=== PATIENT | male | born 1990 | race Caucasian/White ===

== ENCOUNTER 2018-07-18 09:49 | Emergency (ER) | payer SELFPAY ==
[2018-07-18] MEDS ORDERED: Acetaminophen 500 MG TAB ONE (10:56)
[2018-07-18] MEDS ORDERED: Metoclopramide HCl 10 MG/2 ML VIAL ONE (10:56)
--- NOTE | 2018-07-18 12:23 | CT ---
CT BRAIN: Date: 07-18-18 Provided Clinical History: Head injury with head pain and loss of consciousness. FINDINGS: No comparisons. The ventricular system appears normal in size and morphology. There is no evidence fo r intracranial hemorrhage or mass effect. There is a focal area of CSF density at the medial aspect o f the left medial temporal lobe compatible with a benign parahippocampal cyst. The extracranial soft tissues and osseous structures demonstrate an unremarkable CT appearance. IMPRESSION: No evidence for intracranial hemorrhage or mass effect. POS: [facility]
== END 2018-07-18 12:06 | disposition home or self-care (01) ==
LOC: ERS 09:49
DX: S06.0X1A Concussion with loss of consciousness of 30 minutes or less, initial encounter (principal); S00.83XA Contusion of other part of head, initial encounter; F17.210 Nicotine dependence, cigarettes, uncomplicated; W01.198A Fall on same level from slipping, tripping and stumbling with subsequent striking against other object, initial encounter
CPT/HCPCS: 70450; 96365; J2765